=== PATIENT | male | born 1945 | race Caucasian/White ===

== ENCOUNTER 2019-04-14 09:32 | Day surgery (SDC) | payer MEDICARE ==
[~2019-04-14 09:32] MED LIST: Acetaminophen TAB* 325 MG PO PRN; Buffered Lidocaine 1% SYRIN* 1 ML/SYRINGE INTRADERM ONE
[2019-04-14] MEDS ORDERED: Midazolam* 1 MG/ML 2 ML VIAL (2 MG) ONE (10:27)
[2019-04-14] MEDS ORDERED: Ketorolac 0.5% OPHTH (NF) 0.5 % 5 ML BTL ONE (11:09)
[2019-04-14] MEDS ORDERED: Tetracaine 0.5% OPTH.SOL 4 ML* 1 DROP BTL ONE (11:09)
[2019-04-14] MEDS ORDERED: Phenylephrine OPHTH SOL 2.5%* 2 ML ONE (11:09)
[2019-04-14] MEDS ORDERED: Cyclopentolate 1% OPTH.SOL* 2 ML BTL ONE (11:09)
[2019-04-14] MEDS ORDERED: Tropicamide 1% OPTH.SOL* BTL ONE (11:09)
[2019-04-14] MEDS ORDERED: Lidocaine 1% MPF ** 5 ML VIAL ONE (11:09)
[2019-04-14] MEDS ORDERED: Neomycin/Polymy/Dex OPHTH.OIN* 3.5 GM ONE (11:09)
[2019-04-14 11:37] VITALS: BP 138/67
--- NOTE | 2019-04-14 14:54 | OP ---
DATE OF OPERATION/DATE OF DICTATION: 04/14/2019. DATE OF : 1945. SURGEON: Dr. Orlando Garcia. INTERIOR DECORATOR: None. ANESTHESIA: Topical with intravenous sedation. PRE-OP DIAGNOSIS: Cataract, right eye. POST-OP DIAGNOSIS: Cataract, right eye. OPERATIVE PROCEDURE: Phacoemulsification and cataract extraction with posterior chamber intraocular lens implant, right eye. COMPLICATIONS: None. BLOOD LOSS: None. OPERATIVE FINDINGS: The patient was brought to the operating room and received a small amount of int ravenous sedation. A drop of Tetracaine was placed in his right eye. He was prepped and draped in t he usual sterile fashion for ophthalmic surgery and attention was directed to the right eye where a s peculum was placed. A paracentesis was created at the 11 o'clock position and 0.1 cc of 1 percent pr eservative-free Lidocaine was injected into the anterior chamber followed by DisCoVisc. The eye was digitally stabilized while a 2.75 mm keratome was used to create a triplanar clear corneal incision a t the 9 o'clock position. A continuous curvilinear capsulorrhexis was created with a cystotome and U trata forceps. BSS on a cannula was used to hydrodissect the lens from the capsule. Phacoemulsifica tion was performed in a eakort-sxm-hxmwjny technique to create four fragments which were removed. Re sidual cortical material was removed with irrigation and aspiration. DisCoVisc was used to inflate th e capsular bag and an AUOOTO 21.5 diopter lens was folded and inserted into the capsular bag. DisCoV isc was removed using irrigation and aspiration. BSS on a cannula was used to hydrate the corneal st evans and seal the wound. At the end of the case the pupil was round and the lens was centered. The e ye was of normal pressure and the wound was water tight. The speculum was removed and topical Maxitr ol ointment was placed on the surface of the eye. The eye was closed, patched and shielded and the p atient was sent to the recovery room in stable condition with post operative instructions and follow- up appointment given. [id number] #: [id number]
== END 2019-04-14 12:45 | disposition home or self-care (01) ==
LOC: OREAST 09:32
PROVIDERS: ATTEND Ophthalmology
DX: H25.11 Age-related nuclear cataract, right eye (principal); E11.9 Type 2 diabetes mellitus without complications; Z79.84 Long term (current) use of oral hypoglycemic drugs; I10 Essential (primary) hypertension; J44.9 Chronic obstructive pulmonary disease, unspecified; I48.91 Unspecified atrial fibrillation; Z79.01 Long term (current) use of anticoagulants
CPT/HCPCS: A9270-GY; J2250; V2632

== ENCOUNTER 2024-02-25 13:59 | Inpatient (IN) ==
[2024-02-25] MEDS: Albuterol HFA INHALER 8 gm MDI INH ONE (14:46)
[2024-02-25 14:49] LABS: ABS Eosinophils 0.1 10^3/uL (0.0-0.5); ABS Lymphocytes 0.6 10^3/uL (1.0-4.8); ABS Monocytes 1.2 10^3/uL (0.0-1.1); ABS Neutrophils 12.6 10^3/uL (1.5-7.6); Eosinophil % 0.5 %; Hematocrit 34.7 % (38-53); Hemoglobin 11.8 g/dL (13.2-16.3); Lymphocyte % 4.2 %; Mean Corpuscular Hgb Conc 34.1 g/dL (31-36); Mean Platelet Volume 9.1 fL (7.5-11.2); Platelet Count 259 10^3/uL (150-450); Red Blood Count 4.08 10^6/uL (4.06-5.63); Red Cell Distribution Width 17.6 % (12-17); White Blood Count 14.5 10^3/uL (3.6-10.2)
[2024-02-25] MEDS: Dexamethasone IV 4 MG/ML VIAL 1 ml VIAL IV SLOW PU ONE (15:19)
[2024-02-25 15:24] LABS: Albumin 3.6 g/dL (3.2-5.2); Albumin/Globulin Ratio 1.1 (1-3); Creatinine, Serum 2.03 mg/dL (0.67-1.17); Globulin 3.2 g/dL (2-4); Total Bilirubin 0.7 mg/dL (0.2-1.0); Total Protein 6.8 g/dL (6.4-8.9); eGFR CKD-EPI 32.5 (>60)
[2024-02-25] MEDS: Lactated Ringers 1000 ml BAG 1,000 ML IV ONE (16:07)
[2024-02-25 16:18] LABS: High Sensitivity Troponin 1 Hr 16 pg/mL (<20)
[2024-02-25] MEDS ORDERED: Warfarin per PHARMACY **NOTE FOLLOW UP SCH (18:00)
[2024-02-25] MEDS: cefTRIAXone 2 gm/50 mL D5W 2 GM/50 ML BAG IV SCH (18:23)
[2024-02-25] MEDS ORDERED: Dextrose 50% Syringe 50 ml 25 GM/50 ML SYRINGE IV PUSH PRN (18:51)
[2024-02-25] MEDS: DOXYcycline 100 MG in NS 0.9% 250 ml 250 ML IVPB SCH (19:48)
[2024-02-25] MEDS: Lactated Ringers 1000 ml BAG 1,000 ML IV SCH (19:50)
[2024-02-25] MEDS: Albuterol/Ipratropium NEB.SOL (2.5/0.5 MG) 3 ML NEB.SOLN INH SCH (20:03)
[2024-02-25 20:30] LABS: INR 6.3 (0.85-1.14)
[2024-02-25] MEDS: Iodixanol 320 (CONTRAST) 100 ML SDV IV ONE (22:14)
[2024-02-25] MEDS: Remdesivir 100 mg Vial 200 MG in NS 0.9% 250 ml 210 ML IV ONE (22:31)
[2024-02-26] MEDS: Lactated Ringers 1000 ml BAG 500 ML IV ONE (00:20)
[2024-02-26 05:57] LABS: Hematocrit 33.2 % (38-53); Hemoglobin 11.2 g/dL (13.2-16.3); Mean Corpuscular Hgb Conc 33.8 g/dL (31-36); Mean Corpuscular Volume 85.6 fL (80-97); Red Blood Count 3.88 10^6/uL (4.06-5.63); Red Cell Distribution Width 17.4 % (12-17)
[2024-02-26 06:14] LABS: Albumin 3.2 g/dL (3.2-5.2); Calcium 8.3 mg/dL (8.6-10.3); Creatinine, Serum 2.2 mg/dL (0.67-1.17); Globulin 3.1 g/dL (2-4); Magnesium 1.7 mg/dL (1.9-2.7); Phosphorus 3.5 mg/dL (2.5-5.0); Total Bilirubin 0.5 mg/dL (0.2-1.0); Total Protein 6.3 g/dL (6.4-8.9); eGFR CKD-EPI 29.5 (>60)
[2024-02-26 06:31] LABS: INR 4.52 (0.85-1.14)
[2024-02-26 07:07] LABS: ABS Lymphocytes 0.5 10^3/uL (1.0-4.8); ABS Monocytes 0.9 10^3/uL (0.0-1.1); ABS Neutrophils 14.5 10^3/uL (1.5-7.6); ABS Nucleated RBC 0.01 10^3/ul; Lymphocyte % 3.3 %; Mean Platelet Volume 9.5 fL (7.5-11.2); Nucleated Red Blood Cells % 0.1 %/100WBC (0.0-0.8); Platelet Count 218 10^3/uL (150-450)
[2024-02-26] MEDS: Dexamethasone IV 4 MG/ML VIAL 1 ml VIAL IV SLOW PU SCH (08:34)
[2024-02-26] MEDS: Lactated Ringers 1000 ml BAG 1,000 ML IV SCH (08:53)
[2024-02-26] MEDS ORDERED: Remdesivir 100 mg Vial 100 MG in NS 0.9% 100 ml BAG 100 ML IV SCH (09:00)
[2024-02-26] MEDS ORDERED: Sulfur Hexaflouride MICROSPHR 25 MG VIAL IV PRN (09:25)
[2024-02-26] MEDS: Albuterol/Ipratropium NEB.SOL (2.5/0.5 MG) 3 ML NEB.SOLN INH SCH ×2 (10:14→14:11)
[2024-02-26 17:51] LABS: INR 4.03 (0.85-1.14)
[2024-02-26] MEDS: Warfarin DAILY REMINDER **NOTE FOLLOW UP SCH (18:23)
[2024-02-26] MEDS: Warfarin - No Order Today **NOTE FOLLOW UP ONE (18:23)
[2024-02-26] MEDS: Remdesivir 100 mg Q24H MAINTENANCE DOSING IV SCH (20:57)
[2024-02-26] MEDS: Insulin GLARGINE 100 un/ml 10 ml VIAL SUBCUT SCH (22:47)
[2024-02-26] MEDS: Insulin GLARGINE 100 un/ml 10 ml VIAL ONE (22:49)
[2024-02-27 05:04] LABS: Hematocrit 32.4 % (38-53); Hemoglobin 10.9 g/dL (13.2-16.3); Mean Corpuscular Hemoglobin 28.6 pg (27-33); Mean Corpuscular Hgb Conc 33.5 g/dL (31-36); Mean Corpuscular Volume 85.3 fL (80-97); Mean Platelet Volume 9.2 fL (7.5-11.2); Platelet Count 265 10^3/uL (150-450); Red Cell Distribution Width 17.8 % (12-17); White Blood Count 13.2 10^3/uL (3.6-10.2)
[2024-02-27 05:15] LABS: INR 3.67 (0.85-1.14)
[2024-02-27 05:44] LABS: ABS Lymphocytes 0.6 10^3/uL (1.0-4.8); ABS Monocytes 1.3 10^3/uL (0.0-1.1); ABS Neutrophils 11.3 10^3/uL (1.5-7.6); ABS Nucleated RBC 0.01 10^3/ul; Lymphocyte % 4.4 %; Nucleated Red Blood Cells % 0.1 %/100WBC (0.0-0.8)
[2024-02-27 05:54] LABS: Albumin 3.1 g/dL (3.2-5.2); Calcium 8.6 mg/dL (8.6-10.3); Creatinine, Serum 2.58 mg/dL (0.67-1.17); Magnesium 1.9 mg/dL (1.9-2.7); Phosphorus 3.8 mg/dL (2.5-5.0); Potassium 4.1 mmol/L (3.5-5.0); Total Bilirubin 0.4 mg/dL (0.2-1.0); Total Protein 6.1 g/dL (6.4-8.9); eGFR CKD-EPI 24.4 (>60)
[2024-02-27] MEDS: Magnesium Sulfate 2 gm BAG 2 GM/50 ML BAG IVPB ONE (06:44)
[2024-02-27] MEDS: Lactated Ringers 1000 ml BAG 1,000 ML IV ONE ×2 (08:23→09:00)
[2024-02-27] MEDS ORDERED: Insulin GLARGINE 100 un/ml 10 ml VIAL SUBCUT SCH (21:00)
[2024-02-27] MEDS: Insulin GLARGINE 100 un/ml 10 ml VIAL SUBCUT SCH (21:26)
[2024-02-28] MEDS: Albuterol 2.5mg/3 ml (0.083%) NEB.SOLN INH PRN (03:42)
[2024-02-28 05:31] LABS: INR 2.79 (0.85-1.14)
[2024-02-28 05:32] LABS: Hematocrit 33.6 % (38-53); Hemoglobin 11.1 g/dL (13.2-16.3); Mean Corpuscular Hemoglobin 28.8 pg (27-33); Mean Corpuscular Hgb Conc 33.2 g/dL (31-36); Mean Corpuscular Volume 86.7 fL (80-97); Mean Platelet Volume 9.5 fL (7.5-11.2); Platelet Count 225 10^3/uL (150-450); Red Blood Count 3.88 10^6/uL (4.06-5.63); Red Cell Distribution Width 18.3 % (12-17); White Blood Count 13.6 10^3/uL (3.6-10.2)
[2024-02-28 06:04] LABS: Albumin 2.9 g/dL (3.2-5.2); Calcium 8.4 mg/dL (8.6-10.3); Creatinine, Serum 2.5 mg/dL (0.67-1.17); Magnesium 2.1 mg/dL (1.9-2.7); Phosphorus 4.1 mg/dL (2.5-5.0); Total Bilirubin 0.4 mg/dL (0.2-1.0); Total Protein 5.9 g/dL (6.4-8.9); eGFR CKD-EPI 25.3 (>60)
[2024-02-28 07:04] LABS: ABS Lymphocytes 0.7 10^3/uL (1.0-4.8); ABS Monocytes 1.4 10^3/uL (0.0-1.1); ABS Neutrophils 11.5 10^3/uL (1.5-7.6); ABS Nucleated RBC 0.02 10^3/ul; Eosinophil % 0.1 %; Lymphocyte % 4.9 %; Nucleated Red Blood Cells % 0.2 %/100WBC (0.0-0.8)
[2024-02-28] MEDS: Senna TAB 8.6 mg TAB PO SCH (11:27)
[2024-02-28] MEDS: Polyethylene Glycol 3350 17 GM PACKET PO SCH (20:00)
[2024-02-28] MEDS: Insulin GLARGINE 100 un/ml 10 ml VIAL SUBCUT ONE (23:11)
[2024-02-29 06:23] LABS: Hematocrit 35.6 % (38-53); Hemoglobin 11.9 g/dL (13.2-16.3); Mean Corpuscular Hemoglobin 28.7 pg (27-33); Mean Corpuscular Hgb Conc 33.4 g/dL (31-36); Mean Corpuscular Volume 86.1 fL (80-97); Mean Platelet Volume 9.2 fL (7.5-11.2); Platelet Count 301 10^3/uL (150-450); Red Blood Count 4.14 10^6/uL (4.06-5.63); Red Cell Distribution Width 18.2 % (12-17); White Blood Count 13.2 10^3/uL (3.6-10.2)
[2024-02-29 06:24] LABS: INR 2.48 (0.85-1.14)
[2024-02-29 06:53] LABS: Albumin 3.2 g/dL (3.2-5.2); Albumin/Globulin Ratio 0.9 (1-3); Calcium 8.9 mg/dL (8.6-10.3); Creatinine, Serum 2.28 mg/dL (0.67-1.17); Globulin 3.4 g/dL (2-4); Magnesium 1.9 mg/dL (1.9-2.7); Phosphorus 4.7 mg/dL (2.5-5.0); Potassium 4.1 mmol/L (3.5-5.0); Total Bilirubin 0.4 mg/dL (0.2-1.0); Total Protein 6.6 g/dL (6.4-8.9); eGFR CKD-EPI 28.3 (>60)
[2024-02-29 08:07] LABS: ABS Lymphocytes 0.8 10^3/uL (1.0-4.8); ABS Monocytes 1.3 10^3/uL (0.0-1.1); Eosinophil % 0.1 %; Lymphocyte % 5.9 %
[2024-03-01 05:08] LABS: INR 2.4 (0.85-1.14)
[2024-03-01 05:40] LABS: ALT 63 U/L (7-52); Albumin 2.9 g/dL (3.2-5.2); Albumin/Globulin Ratio 0.9 (1-3); Alkaline Phosphatase 125 U/L (35-149); Anion Gap 12 mmol/L (2-16); Blood Urea Nitrogen 72 mg/dL (6-24); CO2 Carbon Dioxide 20 mmol/L (22-32); Calcium 8.8 mg/dL (8.6-10.3); Chloride 106 mmol/L (101-111); Creatinine, Serum 1.88 mg/dL (0.67-1.17); Globulin 3.2 g/dL (2-4); Glucose 87 mg/dL (70-100); Sodium 138 mmol/L (135-145); Total Bilirubin 0.4 mg/dL (0.2-1.0); Total Protein 6.1 g/dL (6.4-8.9); eGFR CKD-EPI 35.7 (>60)
[2024-03-01 12:35] LABS: Glucose Confirmatory 437 mg/dL (70-100)
[2024-03-01] MEDS: Insulin GLARGINE 100 un/ml 10 ml VIAL SUBCUT ONE (13:01)
[2024-03-01] MEDS: Insulin GLARGINE 100 un/ml 10 ml VIAL SUBCUT SCH (21:01)
[2024-03-02 04:54] LABS: Hematocrit 36.1 % (38-53); Hemoglobin 12.3 g/dL (13.2-16.3); Mean Corpuscular Hemoglobin 28.9 pg (27-33); Mean Corpuscular Hgb Conc 34.1 g/dL (31-36); Platelet Count 291 10^3/uL (150-450); Red Blood Count 4.24 10^6/uL (4.06-5.63); Red Cell Distribution Width 18.2 % (12-17); White Blood Count 14.6 10^3/uL (3.6-10.2)
[2024-03-02 04:56] LABS: INR 2.42 (0.85-1.14)
[2024-03-02 05:23] LABS: ABS Monocytes 1.8 10^3/uL (0.0-1.1); ABS Neutrophils 11.7 10^3/uL (1.5-7.6); Eosinophil % 0.2 %; Lymphocyte % 6.8 %; RBC Morphology Normal (Normal)
[2024-03-02 05:51] LABS: Calcium 8.7 mg/dL (8.6-10.3); Creatinine, Serum 1.88 mg/dL (0.67-1.17); Magnesium 1.4 mg/dL (1.9-2.7); Potassium 4.1 mmol/L (3.5-5.0); eGFR CKD-EPI 35.7 (>60)
[2024-03-02] MEDS ORDERED: Albuterol/Ipratropium NEB.SOL (2.5/0.5 MG) 3 ML NEB.SOLN INH PRN (06:37)
[2024-03-02] MEDS: Magnesium Sulfate 2 gm BAG 2 GM/50 ML BAG IVPB ONE (08:11)
[2024-03-02 11:42] LABS: Glucose Confirmatory 425 mg/dL (70-100)
[2024-03-02 17:16] LABS: Glucose Confirmatory 475 mg/dL (70-100)
[2024-03-02] MEDS: Insulin GLARGINE 100 un/ml 10 ml VIAL SUBCUT SCH (22:39)
[2024-03-03] MEDS: Dextrose 50% Syringe 50 ml 25 GM/50 ML SYRINGE IV PUSH ONE (03:32)
[2024-03-03 06:20] LABS: Hematocrit 35.7 % (38-53); Hemoglobin 12.1 g/dL (13.2-16.3); Mean Corpuscular Hemoglobin 28.7 pg (27-33); Mean Corpuscular Hgb Conc 33.9 g/dL (31-36); Mean Corpuscular Volume 84.8 fL (80-97); Mean Platelet Volume 9.3 fL (7.5-11.2); Platelet Count 300 10^3/uL (150-450); Red Blood Count 4.21 10^6/uL (4.06-5.63); Red Cell Distribution Width 17.7 % (12-17); White Blood Count 14.9 10^3/uL (3.6-10.2)
[2024-03-03 06:49] LABS: INR 2.52 (0.85-1.14)
[2024-03-03 06:54] LABS: Calcium 9.3 mg/dL (8.6-10.3); Creatinine, Serum 1.48 mg/dL (0.67-1.17); Magnesium 1.5 mg/dL (1.9-2.7); Potassium 4.1 mmol/L (3.5-5.0); eGFR CKD-EPI 47.5 (>60)
[2024-03-03 08:13] LABS: ABS Eosinophils 0.1 10^3/uL (0.0-0.5); ABS Lymphocytes 1.1 10^3/uL (1.0-4.8); ABS Monocytes 2.1 10^3/uL (0.0-1.1); ABS Neutrophils 11.5 10^3/uL (1.5-7.6); ABS Nucleated RBC 0.01 10^3/ul; Eosinophil % 0.4 %; Lymphocyte % 7.5 %; RBC Morphology Normal (Normal)
[2024-03-03] MEDS: Magnesium Sulf 4 GM/100 ML IV 4,000 MG/100 ML BAG IVPB ONE (08:56)
[2024-03-03] MEDS ORDERED: Dextrose 50% Syringe 50 ml 25 GM/50 ML SYRINGE IV PUSH PRN ×2 (13:36→14:07)
[2024-03-03 16:08] LABS: Calcium 9.1 mg/dL (8.6-10.3); Creatinine, Serum 1.85 mg/dL (0.67-1.17); Potassium 4.9 mmol/L (3.5-5.0); eGFR CKD-EPI 36.4 (>60)
[2024-03-03] MEDS ORDERED: Insulin GLARGINE 100 un/ml 10 ml VIAL SUBCUT SCH (21:00)
[2024-03-03] MEDS: Insulin GLARGINE 100 un/ml 10 ml VIAL SUBCUT SCH (22:57)
[2024-03-04 06:28] LABS: Hematocrit 39.8 % (38-53); Hemoglobin 13.2 g/dL (13.2-16.3); Mean Corpuscular Hemoglobin 29.3 pg (27-33); Mean Corpuscular Hgb Conc 33.2 g/dL (31-36); Mean Corpuscular Volume 88.2 fL (80-97); Mean Platelet Volume 9.5 fL (7.5-11.2); Platelet Count 202 10^3/uL (150-450); Red Blood Count 4.52 10^6/uL (4.06-5.63); Red Cell Distribution Width 18.4 % (12-17); White Blood Count 12.3 10^3/uL (3.6-10.2)
[2024-03-04 06:33] LABS: INR 2.15 (0.85-1.14)
[2024-03-04 07:15] LABS: ABS Lymphocytes 1.1 10^3/uL (1.0-4.8); ABS Monocytes 1.6 10^3/uL (0.0-1.1); ABS Neutrophils 9.6 10^3/uL (1.5-7.6); ABS Nucleated RBC 0.02 10^3/ul; Eosinophil % 0.4 %; Lymphocyte % 8.6 %; Nucleated Red Blood Cells % 0.1 %/100WBC (0.0-0.8); RBC Morphology Normal (Normal)
[2024-03-04 07:29] LABS: Anion Gap 10 mmol/L (2-16); Blood Urea Nitrogen 50 mg/dL (6-24); CO2 Carbon Dioxide 25 mmol/L (22-32); Calcium 9.1 mg/dL (8.6-10.3); Chloride 101 mmol/L (101-111); Creatinine, Serum 1.51 mg/dL (0.67-1.17); Glucose 170 mg/dL (70-100); Magnesium 2.2 mg/dL (1.9-2.7); Sodium 136 mmol/L (135-145); eGFR CKD-EPI 46.4 (>60)
[2024-03-04 08:43] LABS: Potassium Redraw 4.6 mmol/L (3.5-5.0)
[2024-03-04 14:26] VITALS: BP 134/76
== END 2024-03-04 15:22 | disposition home or self-care (01) | DRG 177 ==
LOC: ED 13:59 → SUATTDRO 16:59 → EDHOLD 16:59 → ICU 17:21 → MEDTELE 03-02 09:00
PROVIDERS: ADMIT Internal Medicine Pulmonary Disease; ATTEND Internal Medicine

== ENCOUNTER 2024-03-19 17:40 | Inpatient (IN) ==
[2024-03-19 18:38] LABS: ABS Eosinophils 0.1 10^3/uL (0.0-0.5); ABS Lymphocytes 1.1 10^3/uL (1.0-4.8); ABS Monocytes 1.3 10^3/uL (0.0-1.1); ABS Neutrophils 6.2 10^3/uL (1.5-7.6); Eosinophil % 1.5 %; Hematocrit 36.7 % (38-53); Hemoglobin 12.2 g/dL (13.2-16.3); Mean Corpuscular Hemoglobin 29.2 pg (27-33); Mean Corpuscular Hgb Conc 33.3 g/dL (31-36); Mean Corpuscular Volume 87.9 fL (80-97); Mean Platelet Volume 9.3 fL (7.5-11.2); Platelet Count 197 10^3/uL (150-450); Red Blood Count 4.18 10^6/uL (4.06-5.63); Red Cell Distribution Width 19.6 % (12-17); White Blood Count 8.8 10^3/uL (3.6-10.2)
[2024-03-19] MEDS: Acetaminophen IV 1 GM/100ML 1,000 MG/100 ML BAG IV ONE (18:54)
[2024-03-19 19:18] LABS: INR 5.45 (0.85-1.14)
[2024-03-19 19:28] LABS: Albumin/Globulin Ratio 1.2 (1-3); C Reactive Protein 169.62 mg/L (<8.01); Calcium 9.7 mg/dL (8.6-10.3); Creatinine, Serum 1.24 mg/dL (0.67-1.17); Globulin 3.3 g/dL (2-4); Potassium 3.8 mmol/L (3.5-5.0); Total Bilirubin 0.7 mg/dL (0.2-1.0); Total Protein 7.3 g/dL (6.4-8.9); eGFR CKD-EPI 58.8 (>60)
[2024-03-19] MEDS: cefTRIAXone 2 gm/50 mL D5W 2 GM/50 ML BAG IV ONE (19:45)
[2024-03-19] MEDS: Vancomycin 1,500 MG in NS 0.9% 250 ml 250 ML IVPB ONE (20:52)
[2024-03-19] MEDS ORDERED: Dextrose 50% Syringe 50 ml 25 GM/50 ML SYRINGE IV PUSH PRN (21:46)
[2024-03-19] MEDS ORDERED: Vancomycin per Pharmacy 1 EA NOTE FOLLOW UP SCH (22:00)
[2024-03-20 05:56] LABS: ABS Basophils 0.1 10^3/uL (0.0-0.1); ABS Eosinophils 0.1 10^3/uL (0.0-0.5); ABS Neutrophils 4.6 10^3/uL (1.5-7.6); Eosinophil % 1.9 %; Hemoglobin 11.2 g/dL (13.2-16.3); Lymphocyte % 14.7 %; Mean Corpuscular Hgb Conc 33.1 g/dL (31-36); Mean Corpuscular Volume 87.7 fL (80-97); Mean Platelet Volume 9.4 fL (7.5-11.2); Platelet Count 159 10^3/uL (150-450); Red Blood Count 3.87 10^6/uL (4.06-5.63); Red Cell Distribution Width 19.6 % (12-17); White Blood Count 6.7 10^3/uL (3.6-10.2)
[2024-03-20 06:00] LABS: INR 4.41 (0.85-1.14)
[2024-03-20 06:35] LABS: Calcium 8.5 mg/dL (8.6-10.3); Creatinine, Serum 1.07 mg/dL (0.67-1.17); Magnesium 1.5 mg/dL (1.9-2.7); Potassium 3.4 mmol/L (3.5-5.0); eGFR CKD-EPI 70.2 (>60)
[2024-03-20] MEDS: Tiotropium Brom/Olodaterol MDI (ACUTE) INH SCH (07:43)
[2024-03-20] MEDS: KCL 10 MEQ/50 ML IVPREMIX 10 MEQ/50 ML BAG IV SCH (10:03)
[2024-03-20] MEDS ORDERED: Acetaminophen IV 1 GM/100ML 1,000 MG/100 ML BAG IV PRN (11:28)
[2024-03-20] MEDS ORDERED: Vancomycin per Pharmacy 1 EA NOTE FOLLOW UP SCH (17:00)
[2024-03-20 18:23] LABS: Body Fluid Total Nucleated 27505 /mcL
[2024-03-20 19:20] LABS: Body Fluid Appearance Cloudy; Body Fluid Color Pink; Body Fluid Source Synovial Fluid
[2024-03-20 19:25] LABS: Body Fluid Mono 17 %; Body Fluid Total Cells Counted 200
[2024-03-20] MEDS: cefTRIAXone 2 gm/50 mL D5W 2 GM/50 ML BAG IV SCH (20:33)
[2024-03-20] MEDS: Vancomycin 1,750 MG in NS 0.9% 500 ml BAG 500 ML IVPB SCH (21:48)
[2024-03-21 05:54] LABS: ABS Basophils 0.1 10^3/uL (0.0-0.1); ABS Eosinophils 0.3 10^3/uL (0.0-0.5); ABS Lymphocytes 1.2 10^3/uL (1.0-4.8); ABS Monocytes 0.7 10^3/uL (0.0-1.1); ABS Neutrophils 3.1 10^3/uL (1.5-7.6); Eosinophil % 5.7 %; Hematocrit 34.1 % (38-53); Hemoglobin 11.1 g/dL (13.2-16.3); Lymphocyte % 22.2 %; Mean Corpuscular Hemoglobin 28.8 pg (27-33); Mean Corpuscular Hgb Conc 32.6 g/dL (31-36); Mean Corpuscular Volume 88.1 fL (80-97); Mean Platelet Volume 9.6 fL (7.5-11.2); Nucleated Red Blood Cells % 0.1 %/100WBC (0.0-0.8); Platelet Count 159 10^3/uL (150-450); Red Blood Count 3.87 10^6/uL (4.06-5.63); Red Cell Distribution Width 19.6 % (12-17); White Blood Count 5.4 10^3/uL (3.6-10.2)
[2024-03-21 06:12] LABS: Calcium 8.4 mg/dL (8.6-10.3); Creatinine, Serum 1.17 mg/dL (0.67-1.17); Magnesium 1.5 mg/dL (1.9-2.7); Potassium 3.5 mmol/L (3.5-5.0)
[2024-03-21] MEDS: Magnesium Sulf 4 GM/100 ML IV 4,000 MG/100 ML BAG IVPB ONE (09:01)
[2024-03-21] MEDS: Potassium Chlor 20 meq TAB.ER PO ONE (09:11)
[2024-03-21] MEDS ORDERED: Vancomycin per Pharmacy 1 EA NOTE FOLLOW UP SCH (11:00)
[2024-03-21 11:15] LABS: INR 1.77 (0.85-1.14)
[2024-03-21] MEDS ORDERED: Warfarin per PHARMACY **NOTE FOLLOW UP SCH (12:00)
[2024-03-21] MEDS: Enoxaparin 100 MG/ML SYR SUBCUT SCH (13:13)
[2024-03-21] MEDS ORDERED: Vancomycin Trough Check NOTE FOLLOW UP ONE (19:30)
[2024-03-21] MEDS ORDERED: Vancomycin 1000 MG in NS 0.9% 250 ML IVPB SCH (20:00)
[2024-03-21] MEDS: cefTRIAXone 2 gm/50 mL D5W 2 GM/50 ML BAG IV SCH (21:51)
[2024-03-22 06:37] LABS: ABS Lymphocytes 0.6 10^3/uL (1.0-4.8); ABS Monocytes 0.2 10^3/uL (0.0-1.1); ABS Neutrophils 3.1 10^3/uL (1.5-7.6); ABS Nucleated RBC 0.01 10^3/ul; Eosinophil % 0.1 %; Hematocrit 32.8 % (38-53); Hemoglobin 10.7 g/dL (13.2-16.3); Lymphocyte % 16.2 %; Mean Corpuscular Hemoglobin 28.9 pg (27-33); Mean Corpuscular Hgb Conc 32.8 g/dL (31-36); Mean Platelet Volume 9.5 fL (7.5-11.2); Nucleated Red Blood Cells % 0.1 %/100WBC (0.0-0.8); Platelet Count 166 10^3/uL (150-450); Red Blood Count 3.72 10^6/uL (4.06-5.63); Red Cell Distribution Width 18.8 % (12-17)
[2024-03-22 06:44] LABS: INR 1.56 (0.85-1.14)
[2024-03-22 07:33] LABS: Calcium 8.7 mg/dL (8.6-10.3); Creatinine, Serum 1.25 mg/dL (0.67-1.17); Magnesium 2.3 mg/dL (1.9-2.7); Potassium 4.3 mmol/L (3.5-5.0); eGFR CKD-EPI 58.2 (>60)
[2024-03-22] MEDS: Vancomycin Trough Check NOTE FOLLOW UP ONE (20:55)
[2024-03-23] MEDS ORDERED: Vancomycin 1000 MG in NS 0.9% 250 ML IVPB SCH (05:00)
[2024-03-23 06:20] LABS: ABS Lymphocytes 0.9 10^3/uL (1.0-4.8); ABS Monocytes 0.4 10^3/uL (0.0-1.1); ABS Neutrophils 4.3 10^3/uL (1.5-7.6); Eosinophil % 0.4 %; Hematocrit 30.3 % (38-53); Mean Corpuscular Hemoglobin 29.2 pg (27-33); Mean Corpuscular Hgb Conc 33.1 g/dL (31-36); Mean Corpuscular Volume 88.1 fL (80-97); Mean Platelet Volume 9.3 fL (7.5-11.2); Nucleated Red Blood Cells % 0.1 %/100WBC (0.0-0.8); Platelet Count 167 10^3/uL (150-450); Red Blood Count 3.44 10^6/uL (4.06-5.63); Red Cell Distribution Width 19.5 % (12-17); White Blood Count 5.7 10^3/uL (3.6-10.2)
[2024-03-23 06:41] LABS: INR 1.87 (0.85-1.14)
[2024-03-23 07:29] LABS: Calcium 8.5 mg/dL (8.6-10.3); Creatinine, Serum 1.45 mg/dL (0.67-1.17); eGFR CKD-EPI 48.7 (>60)
[2024-03-23 10:45] VITALS: BP 136/78
[2024-03-23] MEDS: Albuterol 2.5mg/3 ml (0.083%) NEB.SOLN INH PRN (13:30)
[2024-03-23] MEDS ORDERED: Vancomycin Trough Check NOTE FOLLOW UP ONE (21:30)
== END 2024-03-23 14:00 | disposition home or self-care (01) | DRG 554 ==
LOC: EDHOLD 17:40 → ED 17:40 → SUATTDRO 20:53 → MEDTELE 03-20 00:43 → SUATTDRO 03-20 11:38
PROVIDERS: ADMIT Internal Medicine; ATTEND Internal Medicine